=== PATIENT | male | born 1995 | race Caucasian/White ===

== ENCOUNTER 2017-06-09 01:49 | Emergency (ER) | payer OTHER ==
[~2017-06-09] VITALS: Ht 182.9 cm; Wt 80.0 kg
[2017-06-09 01:52] VITALS: BP 137/72; PULSE 61; RESP 16; TEMP 99.3; O2SAT 100
[2017-06-09] MEDS ORDERED: SODIUM CHLOR 0.9% 1000 ML INJ 1,000 ML IV ONE (02:30)
[2017-06-09 02:34] VITALS: O2SAT 99
--- NOTE | 2017-06-09 02:36 | PD ---
HPI Chief Complaint: Chest Pain Time Seen by Provider: 02:00 Travel History International Travel<30 days: No Contact w/Intl Traveler<30days: No Traveled to known affect area: No History of Present Illness HPI The patient is a 22 year old male who presents to the [facility] emergency department with a history of having "air hunger" that began over the last 2 months. He reports that he has to intermittently stop to take a deep breath. The patient reports that he is also had a couple of episodes where over the last few months he becomes shaky and sweaty. This occurred prior to arrival was worse than the prior episodes. He reports that he drank lemonade and it seemed to help, however he then developed chest pain. He reports that over the last few hours she's had intermittent chest pain that is worse with taking a deep breath. He reports that it is also worse with picking up things off the ground or lying on his back. He denies distal pending and a new exercise program or injuring his chest. He denies having any family history of heart disease. He denies having any personal history of hypertension, hyperlipidemia , or diabetes mellitus. He reports that his primary care physician is . He reports that he has had over the last few months chronic intermittent cough and congestion. He reports that he has tried taking an antihistamine for this, however it did not seem to help. He denies having any unexplained weight loss or weight gain. He denies having any nausea, vomiting, or diarrhea. His last bowel movement was earlier today. He denies having any blood in his stool or black or tarry stools. He denies having any recent fevers, neck pain,vomiting, diarrhea, urinary symptoms, or neurologic symptoms. He does report on review of systems having intermittent sharp pains in the left upper quadrant of his abdomen. FORMERLY [facility] Past Medical History Narrative Medical The patient's past medical history is reportedly none. Anxiety: Yes Diminished Hearing: No Tetanus Vaccination: < 5 Years Past Surgical History Surgical History: No Previous Surgery Social History Alcohol Use: Yes (occasionally) Tobacco Use: No Substance Use: No Allergies-Medications (Allergen,Severity, Reaction): Coded Allergies: No Known Allergies (Unverified , 06/09/17) Reported Meds & Prescriptions Reported Meds & Active Scripts Active No Active Prescriptions or Reported Medications Review of Systems General / Constitutional: No: Fever Eyes: No: Visual changes HENT: Positive: Rhinitis, Congestion, No: Headaches Cardiovascular: Positive: Chest Pain or Discomfort, Dyspnea on exertion Respiratory: Positive: Cough, Shortness of Breath Gastrointestinal: Positive: Abdominal Pain, Indigestion, No: Nausea, Vomiting, Diarrhea, Constipation, Changes in Bowel Habits, Loss of Appetite Genitourinary: No: Dysuria Musculoskeletal: No: Pain Skin: No Rash Neurologic: Positive: Tremor, No: Weakness, Focal Abnormalities, Change in Mentation, Slurred Speech, Sensory Disturbance Psychiatric: No: Depression Endocrine: No: Polydipsia Hematologic/Lymphatic: No: Easy Bruising Physical Exam Narrative General: The patient is a well-developed well-nourished male in no acute distress. The patient is slightly anxious appearing on examination. The patient was in the process of getting IV access done and blood collected during my initial evaluation. The patient became diaphoretic after IV access was obtained and also felt lightheaded. A repeat blood pressure revealed his systolic blood pressure went down to 74. The patient's blood pressure quickly came up into the 1 teens systolic again. Head and Neck exam: Head is normocephalic atraumatic. Eyes: EOMI, pupils are equal round and reactive to light. Nose: Midline septum with pink mucous membranes Mouth: Dentition unremarkable. Moist mucus membranes. Posterior oropharynx is not erythematous. No tonsillar hypertrophy. Uvula midline. Airway patent. Neck: No palpable lymphadenopathy. No nuchal rigidity. No thyromegaly. Cardiovascular: Regular rate and rhythm without murmurs, gallops, or rubs. Lungs: Clear to auscultation bilaterally. No wheezes, rhonchi, or rales. Abdomen: Soft, without tenderness to palpation in all 4 quadrants of the abdomen. No guarding, rebound, or rigidity. Normal bowel sounds are audible. No tenderness on palpation of McBurney's point. Extremities: No clubbing, cyanosis, or edema. 2+ pulses in all 4 extremities. Back: No spinous process tenderness to palpation. No costovertebral angle tenderness to palpation. Neurologic Exam: Cranial nerves 2-12 were intact on exam. Strength is 5/5 in all 4 extremities. No sensory deficits noted. Skin Exam: No rash noted. Intact skin that is warm and dry. Data Data Last Documented VS Vital Signs Date Time Temp Pulse Resp B/P (MAP) Pulse Ox O2 Delivery O2 Flow Rate FiO2 06/09/17 02:34 99 Room Air 06/09/17 01:52 99.3 61 16 Orders Orders Electrocardiogram (06/09/17 02:21) Complete Blood Count With Diff (06/09/17 02:21) Comprehensive Metabolic Panel (06/09/17 02:21) Creatine Kinase (Cpk) (06/09/17 02:21) Ckmb (Isoenzyme) Profile (06/09/17 02:21) Troponin I (06/09/17 02:21) B-Type Natriuretic Peptide (06/09/17 02:21) Prothrombin Time / Inr (Pt) (06/09/17:21) Act Partial Throm Time (Ptt) (06/09/17:21) Lipase (06/09/17 02:21) Urinalysis - C+S If Indicated (06/09/17 02:21) D-Dimer (06/09/17 02:21) Magnesium (Mg) (06/09/17 02:21) Thyroid Stimulating Hormone (06/09/17 02:21) Chest, Single Ap (06/09/17 02:21) Iv Access Insert/Monitor (06/09/17 02:21) Ecg Monitoring (06/09/17 02:21) Oximetry (06/09/17 02:21) Sodium Chlor 0.9% 1000 Ml Inj (Ns 1000 M (06/09/17 02:30) Potassium Chloride Eff (K-Lyte Cl Eff) (06/09/17 04:30) Labs Laboratory Tests Test 06/09/17 02:15 06/09/17 03:08 White Blood Count 10.4 TH/MM3 Red Blood Count 5.59 MIL/MM3 Hemoglobin 15.1 GM/DL Hematocrit 44.6 % Mean Corpuscular Volume 79.8 FL Mean Corpuscular Hemoglobin 27.0 PG Mean Corpuscular Hemoglobin Concent 33.8 % Red Cell Distribution Width 14.2 % Platelet Count 183 TH/MM3 Mean Platelet Volume 10.8 FL Neutrophils (%) (Auto) 63.7 % Lymphocytes (%) (Auto) 26.5 % Monocytes (%) (Auto) 7.8 % Eosinophils (%) (Auto) 1.5 % Basophils (%) (Auto) 0.5 % Neutrophils # (Auto) 6.6 TH/MM3 Lymphocytes # (Auto) 2.8 TH/MM3 Monocytes # (Auto) 0.8 TH/MM3 Eosinophils # (Auto) 0.2 TH/MM3 Basophils # (Auto) 0.1 TH/MM3 CBC Comment DIFF FINAL Differential Comment Prothrombin Time 11.6 SEC Prothromb Time International Ratio 1.0 RATIO Activated Partial Thromboplast Time 28.8 SEC D-Dimer Quantitative (PE/DVT) 0.20 MG/L FEU B-Type Natriuretic Peptide 4 PG/ML Blood Urea Nitrogen 9 MG/DL Creatinine 1.03 MG/DL Random Glucose 110 MG/DL Total Protein 6.6 GM/DL Albumin 3.5 GM/DL Calcium Level 7.8 MG/DL Magnesium Level 1.7 MG/DL Alkaline Phosphatase 69 U/L Aspartate Amino Transf (AST/SGOT) 14 U/L Alanine Aminotransferase (ALT/SGPT) 19 U/L Total Bilirubin 0.4 MG/DL Sodium Level 136 MEQ/L Potassium Level 3.0 MEQ/L Chloride Level 102 MEQ/L Carbon Dioxide Level 25.4 MEQ/L Anion Gap 9 MEQ/L Estimat Glomerular Filtration Rate 90 ML/MIN Total Creatine Kinase 94 U/L Troponin I LESS THAN 0.02 NG/ML Lipase 96 U/L Thyroid Stimulating Hormone 3rd Gen 5.090 uIU/ML MDM Medical Decision Making Medical Screen Exam Complete: Yes Emergency Medical Condition: Yes Medical Record Reviewed: Yes Differential Diagnosis Pulmonary embolism, versus pneumonia, versus acid reflux, versus acute coronary syndrome, versus anxiety disorder, versus endocrine disorder, versus electrolyte derangement Narrative Course During the course of the patients emergency department visit, the patients history, examination, and differential diagnosis were reviewed with the patient. The patient had IV access obtained and blood work sent for analysis. The patient was placed on a implementation analyst with oximetry and blood pressure monitoring. An ECG was done on arrival. The patient's ECG reveals sinus rhythm heart rate of 63, incomplete right bundle branch block, QRS duration is 114 ms, QTC [address] segment elevation or depression. T waves are inverted in V1. The patient was initially provided normal saline 1 L IV fluid bolus. The patients laboratory studies were reviewed and remarkable for a white count of 10.4, hemoglobin 15.1, platelets 183 with a normal differential, CMP is remarkable for potassium of 3.0 which was supplemented orally, glucose 110, calcium 7.8, AST 14, CPK 94, troponin I less than 0.02, BNP is 4, lipase 96, TSH 5.09, PT PTT unremarkable, d-dimer is 0.20 decreasing the likelihood of pulmonary embolism in this patient with no other significant risk factors. Radiology studies were reviewed and remarkable for a chest x-ray that shows no acute evidence of cardiopulmonary disease. The patient during his evaluation did have an episode of near vasovagal syncope. The patient reported feeling improved after his initial evaluation in the emergency department. I explained his abnormal thyroid study and recommended that he follow up for additional testing. He is given a lab slip for this. He will also be on a potassium supplement over the next 5 days. The patient is instructed regarding the importance of close follow-up with his primary care physician, Dr. Kaplan. The patient is resting comfortably and feels better, is alert and in no distress. The patients results and examination findings were discussed with the patient. The repeat examination is unremarkable and benign. The history, exam, diagnostic testing, and current condition do not suggest any significant pathology to warrant further testing, continued ED treatment, admission, or surgical evaluation at this point. The vital signs have been stable. The patient does not have uncontrollable pain, intractable vomiting, or other significant symptoms. The patient's condition is stable and appropriate for discharge. The patient will pursue further outpatient evaluation with a primary care physician or other designated or consulting physician as indicated in the discharge instructions. The patient expressed understanding and was agreeable with this plan. Diagnosis Primary Impression: Chest pain Qualified Codes: R07.9 - Chest pain, unspecified Additional Impressions: Hypokalemia Elevated TSH Referrals: Primary Care Physician Patient Instructions: Chest Pain (ED), General Instructions, Hypokalemia (ED), Hypothyroidism (ED) Med/Other Pt SpecificInfo: Prescription(s) given Scripts Potassium Chloride ER (K-Tab) 20 Meq Tab 20 MEQ PO BID for Electrolyte Replacement, #10 TAB 0 Refills Prov: Jacey Anguiano MD 06/09/17 Disposition: 01 DISCHARGE HOME Condition: Stable Jacey Anguiano MD Jun 09, 2017 02:36
[2017-06-09 02:38] LABS: AUTOMATED NEUTROPHIL # 6.6 TH/MM3 (1.8-7.7); BASOPHIL # 0.1 TH/MM3 (0-0.2); BASOPHIL % 0.5 % (0.0-2.0); EOSINOPHIL # 0.2 TH/MM3 (0-0.4); EOSINOPHIL % 1.5 % (0.0-4.0); HEMATOCRIT 44.6 % (39.0-51.0); HEMO FLAGS DIFF FINAL; LYMPH % 26.5 % (9.0-44.0); LYMPHOCYTE # 2.8 TH/MM3 (1.0-4.8); MEAN CELL VOLUME 79.8 FL (80.0-100.0); MEAN CORPUSCULAR HGB CONC 33.8 % (32.0-36.0); MONO % 7.8 % (0.0-8.0); NEUT % 63.7 % (16.0-70.0); PLATELET COUNT 183 TH/MM3 (150-450); RED BLOOD COUNT 5.59 MIL/MM3 (4.50-5.90); RED CELL DISTRIBUTION WIDTH 14.2 % (11.6-17.2); WHITE BLOOD COUNT 10.4 TH/MM3 (4.0-11.0)
[2017-06-09 02:55] LABS: APTT (PATIENT) 28.8 SEC (24.3-30.1); PROTHROMBIN TIME - PATIENT 11.6 SEC (9.8-11.6)
--- NOTE | 2017-06-09 03:07 | RADRPT ---
EXAM DATE/TIME: 06/09/2017 02:18 [facility] COMPARISON: No previous studies available for comparison. INDICATIONS : Chest pain. MEDICAL HISTORY : None. SURGICAL HISTORY : None. ENCOUNTER: Initial ACUITY: 1 day PAIN SCORE: 0/10 LOCATION: Bilateral chest FINDINGS: A single view of the chest demonstrates the lungs to be symmetrically aerated without evidence of mas s, infiltrate or effusion. The cardiomediastinal contours are unremarkable. Osseous structures are intact. CONCLUSION: No evidence of acute cardiopulmonary disease. Jus Russell MD on June 09, 2017 at 3:05 Board Certified Radiologist. This report was verified electronically.
[2017-06-09 04:00] LABS: ALT (GPT) 19 U/L (12-78); ANION GAP 9 MEQ/L (5-15); AST (GOT) 14 U/L (15-37); BICARBONATE 25.4 MEQ/L (21.0-32.0); BLOOD UREA NITROGEN 9 MG/DL (7-18); CHLORIDE 102 MEQ/L (98-107); GLOMERULAR FILTRATION RATE 90 ML/MIN (>89); MAGNESIUM 1.7 MG/DL (1.5-2.5); SODIUM (NA) 136 MEQ/L (136-145)
[2017-06-09 04:11] LABS: ALKALINE PHOSPHATASE 69 U/L (45-117); TOTAL BILIRUBIN ADULT 0.4 MG/DL (0.2-1.0)
[2017-06-09 04:15] LABS: CREATINE KINASE 94 U/L (39-308)
[2017-06-09] MEDS ORDERED: POTASSIUM CHLORIDE 25 MEQ EFFERVESCENT TAB PO ONE (04:30)
[2017-06-09] MEDS ORDERED: POTA1TAB4 PO (04:53)
--- NOTE | 2017-06-09 10:03 | EKG ---
Date Performed: 06/09/2017 Time Performed: 02:10:36 PTAGE: 22 years EKG: Sinus rhythm BORDERLINE ECG NO PREVIOUS TRACING DOCTOR: Prateek Bear Interpretating Date/Time 06/09/2017 10:03:18
== END 2017-06-09 05:16 | disposition home or self-care (01) ==
LOC: NEPE 01:49
DX: R07.9 Chest pain, unspecified (principal); E87.6 Hypokalemia; R94.6 Abnormal results of thyroid function studies; I45.10 Unspecified right bundle-branch block; R42 Dizziness and giddiness; R05 Cough; F41.9 Anxiety disorder, unspecified; R09.81 Nasal congestion; R10.9 Unspecified abdominal pain
CPT/HCPCS: 71010; 80053; 82550; 83690; 83735; 83880; 84443; 84484; 85025; 85379; 85610; 85730; 93005; 96360; 99285; J7030

== ENCOUNTER 2017-11-06 19:40 | Emergency (ER) | payer OTHER ==
[~2017-11-06] VITALS: Ht 182.9 cm; Wt 82.0 kg
[~2017-11-06 19:40] MED LIST: POTA1TAB4 PO
[2017-11-06 20:01] VITALS: BP 140/76; PULSE 83; RESP 18; TEMP 97.7; O2SAT 100
[2017-11-06] MEDS ORDERED: SODIUM CHLORIDE 0.9% FLUSH 10 ML FLUSH IVF PRN (20:30)
--- NOTE | 2017-11-06 20:44 | RADRPT ---
EXAM DATE/TIME: 11/06/2017 20:30 [facility] COMPARISON: CHEST SINGLE AP, June 09, 2017, 2:18. INDICATIONS : Chest pain. MEDICAL HISTORY : None. SURGICAL HISTORY : None. ENCOUNTER: Initial ACUITY: 1 day PAIN SCORE: 5/10 LOCATION: Bilateral chest FINDINGS: A single view of the chest demonstrates the lungs to be symmetrically aerated without evidence of mas s, infiltrate or effusion. The cardiomediastinal contours are unremarkable. Osseous structures are intact. CONCLUSION: Normal examination. Matthew Potts MD on November 06, 2017 at 20:43 Board Certified Radiologist. This report was verified electronically.
--- NOTE | 2017-11-06 20:54 | PD ---
HPI Chief Complaint: Pain: Acute or Chronic Time Seen by Provider: 20:08 Travel History International Travel<30 days: No Contact w/Intl Traveler<30days: No Traveled to known affect area: No History of Present Illness HPI 22-year-old male presents to the emergency department for evaluation of left shoulder pain that started approximately 30 minutes prior to arrival. Patient states he'll also intimately get palpitations. He denies any chest pain at this time. Patient also reports chronic left-sided neck pain that has been ongoing. He currently rates pain 4/10, aching, without radiation. Patient denies any cardiac history. He denies any systemic family history of cardiac disease or sudden under the age of 40 of family members. Patient denies any IV drug use. He denies fevers or chills. He Does report a mild cough. No leg edema. No hemoptysis. No history DVT/PE. No recent surgery or travel. He is not tachycardic. Patient states the pain is not worse with movement of the left arm. Moderate severity. No exacerbating alleviating factors. Patient did take aspirin prior to arrival. FOR[facility]LY [facility] Past Medical History Anxiety: Yes Diminished Hearing: No Tetanus Vaccination: > 5 Years Influenza Vaccination: No Past Surgical History Surgical History: No Previous Surgery Social History Alcohol Use: Yes (every other day) Tobacco Use: Yes Substance Use: No Allergies-Medications (Allergen,Severity, Reaction): Coded Allergies: No Known Allergies (Verified Adverse Reaction, Unknown, 11/06/17) Reported Meds & Prescriptions Reported Meds & Active Scripts Active No Active Prescriptions or Reported Medications Review of Systems Except as stated in HPI: all other systems reviewed are Neg Physical Exam Narrative GENERAL: Well-nourished, well-developed male patient, afebrile. SKIN: Focused skin assessment warm/dry. HEAD: Normocephalic. Atraumatic. EYES: No scleral icterus. No injection or drainage. NECK: Supple, trachea midline. No JVD or lymphadenopathy. CARDIOVASCULAR: Regular rate and rhythm without murmurs, gallops, or rubs. Bilateral radial and pedal pulses are 2+ to RESPIRATORY: Breath sounds equal bilaterally. No accessory muscle use. Lungs sounds are clear to auscultation. GASTROINTESTINAL: Abdomen soft, non-tender, nondistended. MUSCULOSKELETAL: No cyanosis, or edema. No reproducible tenderness of her neck or shoulder. He has full range of motion of the left arm without pain. BACK: Nontender without obvious deformity. No CVA tenderness. Data Data Last Documented VS Vital Signs Date Time Temp Pulse Resp B/P (MAP) Pulse Ox O2 Delivery O2 Flow Rate FiO2 11/06/17 20:48 99 Room Air 11/06/17 20:01 97.7 83 18 140/76 (97) Orders Orders Electrocardiogram (11/06/17 20:19) Basic Metabolic Panel (Bmp) (11/06/17 20:19) Ckmb (Isoenzyme) Profile (11/06/17 20:19) Complete Blood Count With Diff (11/06/17 20:19) Magnesium (Mg) (11/06/17 20:19) Troponin I (11/06/17 20:19) Chest, Single Ap (11/06/17 20:19) Ecg Monitoring (11/06/17 20:19) Bilateral Bp Monitoring (11/06/17 20:19) Iv Access Insert/Monitor (11/06/17 20:19) Oximetry (11/06/17 20:19) Oxygen Administration (11/06/17 20:19) Sodium Chloride 0.9% Flush (Ns Flush) (11/06/17 20:30) CKMB (11/06/17 20:30) CKMB% (11/06/17 20:30) Labs Laboratory Tests Test 11/06/17 20:30 White Blood Count 5.4 TH/MM3 Red Blood Count 5.65 MIL/MM3 Hemoglobin 15.2 GM/DL Hematocrit 45.3 % Mean Corpuscular Volume 80.3 FL Mean Corpuscular Hemoglobin 26.8 PG Mean Corpuscular Hemoglobin Concent 33.4 % Red Cell Distribution Width 14.3 % Platelet Count 190 TH/MM3 Mean Platelet Volume 9.8 FL Neutrophils (%) (Auto) 69.5 % Lymphocytes (%) (Auto) 21.0 % Monocytes (%) (Auto) 7.4 % Eosinophils (%) (Auto) 1.3 % Basophils (%) (Auto) 0.8 % Neutrophils # (Auto) 3.8 TH/MM3 Lymphocytes # (Auto) 1.1 TH/MM3 Monocytes # (Auto) 0.4 TH/MM3 Eosinophils # (Auto) 0.1 TH/MM3 Basophils # (Auto) 0.0 TH/MM3 CBC Comment DIFF FINAL Differential Comment Blood Urea Nitrogen 10 MG/DL Creatinine 1.21 MG/DL Random Glucose 140 MG/DL Calcium Level 8.8 MG/DL Magnesium Level 1.8 MG/DL Sodium Level 136 MEQ/L Potassium Level 3.8 MEQ/L Chloride Level 100 MEQ/L Carbon Dioxide Level 26.6 MEQ/L Anion Gap 9 MEQ/L Estimat Glomerular Filtration Rate 75 ML/MIN Total Creatine Kinase 214 U/L Creatine Kinase MB 0.7 NG/ML Troponin I LESS THAN 0.02 NG/ML MDM Medical Decision Making Medical Screen Exam Complete: Yes Emergency Medical Condition: Yes Medical Record Reviewed: Yes Interpretation(s) chest x-ray - CONCLUSION: Normal examination. Differential Diagnosis Strain versus anxiety versus chest wall pain versus ACS Narrative Course 22-year-old male presents to the emergency department for evaluation of left shoulder pain. He appears well on exam. However, patient patient's father would like a workup to be completed. EKG, CBC, BMP, magnesium, CK, troponin, chest x-ray are ordered and pending. EKG shows sinus rhythm, HR 62, no acute ST changes. CBC is unremarkable. BMP shows no acute abnormality. CK is 214. Troponin is less than 0.02. Magnesium is 1.8. Chest x-ray is normal. Labs and imaging are reassuring. Patient appears anxious on exam. No evidence of any cardiac disease. Patient is stable for discharge home to follow up with his primary care physician. The patient was discharged in stable condition with instructions, including return instructions and follow up instructions. Diagnosis Primary Impression: Left shoulder pain Qualified Codes: M25.512 - Pain in left shoulder Referrals: Primary Care Physician call for appointment Patient Instructions: General Instructions, Shoulder Pain (ED) Additional Instructions: [id number] Tylenol or ibuprofen as needed for pain. Follow-up with your primary care physician. Return to the emergency department for any acute worsening of symptoms. Med/Other Pt SpecificInfo: No Change to Meds Scripts No Active Prescriptions or Reported Meds Disposition: 01 DISCHARGE HOME Condition: Stable Tesha MarinP Nov 06, 2017 20:54
[2017-11-06 20:58] LABS: AUTOMATED NEUTROPHIL # 3.8 TH/MM3 (1.8-7.7); BASOPHIL % 0.8 % (0.0-2.0); EOSINOPHIL # 0.1 TH/MM3 (0-0.4); EOSINOPHIL % 1.3 % (0.0-4.0); HEMATOCRIT 45.3 % (39.0-51.0); HEMOGLOBIN 15.2 GM/DL (13.0-17.0); LYMPHOCYTE # 1.1 TH/MM3 (1.0-4.8); MEAN CELL VOLUME 80.3 FL (80.0-100.0); MEAN CORPUSCULAR HEMOGLOBIN 26.8 PG (27.0-34.0); MEAN CORPUSCULAR HGB CONC 33.4 % (32.0-36.0); MEAN PLATELET VOLUME 9.8 FL (7.0-11.0); MONO % 7.4 % (0.0-8.0); MONOCYTE # 0.4 TH/MM3 (0-0.9); NEUT % 69.5 % (16.0-70.0); PLATELET COUNT 190 TH/MM3 (150-450); RED BLOOD COUNT 5.65 MIL/MM3 (4.50-5.90); RED CELL DISTRIBUTION WIDTH 14.3 % (11.6-17.2); WHITE BLOOD COUNT 5.4 TH/MM3 (4.0-11.0)
[2017-11-06 21:06] LABS: BICARBONATE 26.6 MEQ/L (21.0-32.0); BLOOD UREA NITROGEN 10 MG/DL (7-18); CALCIUM 8.8 MG/DL (8.5-10.1); CHLORIDE 100 MEQ/L (98-107); CREATININE 1.21 MG/DL (0.60-1.30); GLOMERULAR FILTRATION RATE 75 ML/MIN (>89); GLUCOSE,RANDOM 140 MG/DL (74-106); MAGNESIUM 1.8 MG/DL (1.5-2.5); SODIUM (NA) 136 MEQ/L (136-145)
[2017-11-06 21:10] LABS: TROPONIN I LESS THAN 0.02 NG/ML (0.02-0.05)
--- NOTE | 2017-11-07 09:33 | EKG ---
Date Performed: 11/06/2017 Time Performed: 20:26:20 PTAGE: 22 years EKG: Sinus rhythm WITH SINUS ARRHYTHMIA NORMAL ECG PREVIOUS TRACING : 06/09/2017 02.10 DOCTOR: Prateek Bear Interpretating Date/Time 11/07/2017 09:31:18
== END 2017-11-06 21:50 | disposition home or self-care (01) ==
LOC: NEPE 19:40
DX: M25.512 Pain in left shoulder (principal); F41.9 Anxiety disorder, unspecified; I49.9 Cardiac arrhythmia, unspecified; Z72.0 Tobacco use
CPT/HCPCS: 71045; 80048; 82550; 82552; 83735; 84484; 85025; 93005